=== PATIENT | male | born 2000 | race Two or more races ===

== ENCOUNTER 2021-01-03 15:45 | Emergency (ER) | payer MEDICAID ==
[~2021-01-03] VITALS: Ht 177.8 cm; Wt 62.8 kg
[2021-01-03] MEDS ORDERED: MORPHINE SULFATE 4 MG/ML, 1ML ONE (16:08)
[2021-01-03] MEDS ORDERED: ONDANSETRON 2MG/ML, 2ML ONE (16:08)
[2021-01-03] MEDS ORDERED: AMPICILLIN/SULBACTAM 3 GM in SODIUM CHLORIDE 0.9% 100 ML IV ONE (16:30)
[2021-01-03] MEDS ORDERED: MORPHINE SULFATE 4 MG/ML, 1ML IV PRN (16:30)
[2021-01-03] MEDS ORDERED: ONDANSETRON 2MG/ML, 2ML IVPush ONE (16:30)
[2021-01-03 16:39] LABS: HCT (SEDRATE) 26.5 % (39.2-51.8)
--- NOTE | 2021-01-03 16:40 | NUR ---
PT CAME IN [place] SWELLING AND PAIN IN LEFT RING FINGER. PT STATES "I MAY HAVE POPPED MY KNUCKLE TOO HARD ONE TIME BUT I CANT REMEMBER JAMMING IT OR TWISTING IT". PT ALSO HAD A NON HODGKINS LYMPHONA DX AND HAS BEEN ON CHEMO ON THE PAST BUT IS NOT CURRENTLY UNDEROING CHEMO TREATMENT. PT REPORTS THAT JAN 25 HE IS SLATED TO GO TO [facility] TO START A NEW CLINICAL CHEMO TRIAL. PT IS RESTING IN [facility]. CONNECTED TO MONITORING EQUIPMENT. BLOOD CULTURES DRAWN PRIOR TO ADM OF ABX.
[2021-01-03 16:41] LABS: MEAN CORPUSCULAR HEMOGLOBIN 22.9 pg (27.5-34.5); MEAN CORPUSCULAR HGB CONC 30.8 g/dL (33.2-36.2); MEAN PLATELET VOLUME 6.4 fL (7.4-10.4); PLATELET COUNT 675 x10^3/uL (130-400); RED CELL DISTRIBUTION WIDTH 18.9 % (9.4-14.8)
[2021-01-03 16:52] LABS: ALBUMIN 2.1 g/dL (3.4-5.0); CALCIUM 8.4 mg/dL (8.5-10.1); CHLORIDE 106 mmol/L (98-107)
[2021-01-03 17:00] LABS: ALANINE AMINOTRANSFERASE 34 U/L (12-78); ALKALINE PHOSPHATASE 421 U/L (45-117); ANION GAP 10 mmol/L (5-15); BILIRUBIN,TOTAL 0.4 mg/dL (0.2-1.0); CREATININE 0.75 mg/dL (0.7-1.3); TOTAL PROTEIN 7.5 g/dL (6.4-8.2)
[2021-01-03 17:06] VITALS: BP 124/68
[2021-01-03 17:40] LABS: MD YES
[2021-01-03 17:41] LABS: LYMPH#(MANUAL) 0.98 x10^3/uL (1-3.4); LYMPHS% (MANUAL) 8 % (22-44); MONOS#(MANUAL) 0.61 x10^3/uL (0.3-2.7); MONOS% (MANUAL) 5 % (2-9); SEG#(MANUAL) 10.61 x10^3/uL (1.8-6.8); SEGS% (MANUAL) 87 % (42-75)
[2021-01-03 17:42] LABS: ANISOCYTOSIS 2+
[2021-01-03 17:43] LABS: HYPOCHROMIA 2+; MICROCYTOSIS 2+; POLYCHROMASIA 1+
[2021-01-03 17:44] LABS: OVALOCYTES 1+; SPHEROCYTES 1+
[2021-01-03 17:45] LABS: <PLATELET ESTIMATE> INCREASED; SMALL PLATELETS 1+; TOXIC GRAN 1+
== END 2021-01-03 17:27 | disposition home or self-care (01) ==
LOC: ED 17:00
DX: C81.90 Hodgkin lymphoma, unspecified, unspecified site (principal); L03.012 Cellulitis of left finger; D64.9 Anemia, unspecified; M79.89 Other specified soft tissue disorders
CPT/HCPCS: 29130; 36415; 73130; 80053; 85025; 85651; 86140; 87040; 96365; 96375; 99284; J0295; J2270; J2405

== ENCOUNTER 2021-03-09 16:50 | Inpatient (IN) | payer MEDICARE, MEDICAID ==
[~2021-03-09] VITALS: Ht 177.8 cm; Wt 67.4 kg
[2021-03-09] VITALS (8 sets, daily range): BP systolic 104–130; BP diastolic 46–90
--- NOTE | 2021-03-09 17:05 | NUR ---
SEISMOLOGY TEACHER: PT REFUSED TO STAND FOR TRIAGE WEIGHT. PT REPOERTS HE IS IN TOO MUCH PAIN TO STAND.
--- NOTE | 2021-03-09 17:55 | NUR ---
PT TO ROOM 16 W/ C/O FEELING HOT AND HAVING GEN WEAKNESS. PT STATES HE WENT TO [facility] AND WAS TOLD HE HAD BACTEREMIA. PT STATES HE LEFT AMA BECAUSE [place] AND WANTED TO BE ADMITTED [place]. PT LEFT AMA YESTERDAY. TO ED TODAY. PT NOTED TO BE HOT, PALE, LETHARGIC IN ROOM. PORT ACCESSED. PT RESTING ON GURNEY. NADN. MONITORS APPLIED. VSS. STUDENT AT BEDSIDE FOR EVAL.
[2021-03-09] MEDS ORDERED: LEVO25TA4 PO (17:58)
[2021-03-09] MEDS ORDERED: [UNRECOGNIZED DRUG - OTHER] IV (17:58)
[2021-03-09] MEDS ORDERED: [UNRECOGNIZED DRUG - REMARK] IV (17:58)
[2021-03-09] MEDS ORDERED: ONDANSETRON 2MG/ML, 2ML IVPush ONE ×2 (18:00→19:30)
[2021-03-09] MEDS ORDERED: SODIUM CHLORIDE FLUSH 10ML SYR IVF ONE (18:00)
[2021-03-09] MEDS ORDERED: SODIUM CHLORIDE 0.9% 1,000ML IVBOLUS ONE ×2 (18:00→19:30)
[2021-03-09] MEDS ORDERED: ONDANSETRON 2MG/ML, 2ML ONE ×2 (18:01→19:53)
[2021-03-09] MEDS ORDERED: MORPHINE SULFATE 4 MG/ML, 1ML ONE (18:02)
[2021-03-09] MEDS: MORPHINE SULFATE 4 MG/ML, 1ML IVPush PRN (18:04)
[2021-03-09 18:21] LABS: MEAN CORPUSCULAR HGB CONC 30.6 g/dL (33.2-36.2); MEAN PLATELET VOLUME 7.4 fL (7.4-10.4); PLATELET COUNT 379 x10^3/uL (130-400); RED BLOOD COUNT 2.52 x10^6/uL (4.38-5.82); RED CELL DISTRIBUTION WIDTH 23.5 % (9.4-14.8)
[2021-03-09 18:28] LABS: ALANINE AMINOTRANSFERASE 15 U/L (12-78); ALBUMIN 1.8 g/dL (3.4-5.0); ANION GAP 6 mmol/L (5-15); CALCIUM 7.8 mg/dL (8.5-10.1); CHLORIDE 107 mmol/L (98-107); CREATININE 0.66 mg/dL (0.7-1.3)
[2021-03-09 18:30] LABS: ALKALINE PHOSPHATASE 193 U/L (45-117); BILIRUBIN,TOTAL 0.3 mg/dL (0.2-1.0); TOTAL PROTEIN 5.6 g/dL (6.4-8.2)
--- NOTE | 2021-03-09 19:04 | NUR ---
PT RESTING ON GURNEY. NADN. CAMERON.
--- NOTE | 2021-03-09 19:07 | NUR ---
DISCUSSED PT WBC AND LACTIC ACID W/ ERP DR. QUINN. AWAITING NEW ORDERS FOR IV ABX.
[2021-03-09 19:18] LABS: BAND#(MANUAL) 0.17 x10^3/uL; BANDS%(MANUAL) 1 % (0-7); LYMPH#(MANUAL) 1.57 x10^3/uL (1-3.4); LYMPHS% (MANUAL) 9 % (22-44); METAMYELOCYTES# (MANUAL) 0.17 x10^3/uL (0-0); METAMYELOCYTES% (MANUAL) 1 % (0-1); MONOS% (MANUAL) 4 % (2-9); SEG#(MANUAL) 14.79 x10^3/uL (1.8-6.8); SEGS% (MANUAL) 85 % (42-75)
[2021-03-09 19:19] LABS: ANISOCYTOSIS 1+; HYPOCHROMIA 1+
[2021-03-09 19:20] LABS: OVALOCYTES 1+; POLYCHROMASIA 1+; SPHEROCYTES 1+
[2021-03-09 19:21] LABS: <PLATELET ESTIMATE> ADEQUATE; <PLT MORPHOLOGY> NORMAL PLT MORPH; TEAR DROPS 1+; TOXIC GRAN 1+
[2021-03-09 19:22] LABS: MICROCYTOSIS 1+
[2021-03-09] MEDS ORDERED: VANCOMYCIN PER PHARMACY MC ONE (19:30)
[2021-03-09] MEDS ORDERED: HYDROmorphone 1 MG/ML, 1ML INJ ONE (19:53)
--- NOTE | 2021-03-09 19:59 | NUR ---
2ND PIV INITIATED AFTER PT EDUCATED ON IMPORTANCE TO BE ABLE TO RUN VANOMYCIN FOR INFECTION WELL BLOOD. PT VERBALIZES UNDERSTANDING. PORT UTILIZED FOR ABX AND PIV L AC UTILIZED FOR BLOOD TRANSFUSION. PT RESTING ON GURNEY. NADN. CAMERON.
[2021-03-09] MEDS ORDERED: CEFTRIAXONE PMX 1GM/50ML 50 ML IVPB ONE (20:00)
[2021-03-09] MEDS ORDERED: PLEASE ENTER MEASURED WEIGHT MC SCH (20:00)
[2021-03-09] MEDS ORDERED: HYDROmorphone 1 MG/ML, 1ML INJ IV ONE (20:00)
[2021-03-09] MEDS ORDERED: VANCOMYCIN 1,600 MG in SODIUM CHLORIDE 0.9% 250 ML IV ONE (20:00)
[2021-03-09] MEDS ORDERED: CEFTRIAXONE PMX 1GM/50ML 50 ML ONE (20:13)
[2021-03-09] MEDS ORDERED: ONDANSETRON ODT 4 MG PO PRN (20:30)
[2021-03-09] MEDS ORDERED: NS + 20MEQ KCL 1,000 ML IV SCH (20:30)
[2021-03-09] MEDS ORDERED: DIPHENHYDRAMINE 25 MG CAPSULE PO PRN (20:30)
[2021-03-09] MEDS ORDERED: POLYETHYLENE GLYCOL 17 GM PACKET PO PRN (20:30)
[2021-03-09] MEDS ORDERED: BISACODYL 10 MG SUPP PR PRN (20:30)
[2021-03-09] MEDS ORDERED: VANCOMYCIN PER PHARMACY MC PRN (20:30)
--- NOTE | 2021-03-09 20:35 | NUR ---
REPORT GIVEN TO JAIR ROMERO RN. ALL QUESTIONS ANSWERED. AWAITING PT TRANSPORT.
--- NOTE | 2021-03-09 20:41 | NUR ---
PT RESTING ON GURNEY. NADN. CAMERON.
[2021-03-09] MEDS ORDERED: PHARMACOKINETIC CONSULTATION MC ONE (21:00)
[2021-03-09] MEDS ORDERED: PHARMACOKINETIC MONITORING MC PRN (21:00)
[2021-03-09] MEDS: OXYcodone IR 5MG TABLET PO PRN ×2 (21:26→23:51)
[2021-03-09] MEDS: ACETAMINOPHEN 325 MG TABLET PO PRN (22:08)
[2021-03-09] MEDS: AMPICILLIN/SULBACTAM 3 GM in SODIUM CHLORIDE 0.9% 100 ML IV SCH (22:33)
[2021-03-10 00:25] VITALS: BP 111/60
[2021-03-10 00:50] VITALS: BP 111/60
[2021-03-10] MEDS ORDERED: HYDROCORTISONE CRM 2.5%, 20GM TP PRN (01:00)
[2021-03-10] MEDS: morphine SULFATE 10 MG/ML, 1ML IVPush PRN ×5 (01:09→23:34)
[2021-03-10 02:51] VITALS: BP 109/55
[2021-03-10] MEDS ORDERED: VANCOMYCIN 1,200 MG in SODIUM CHLORIDE 0.9% 250 ML IV SCH (04:00)
[2021-03-10] MEDS ORDERED: DIPHENHYDRAMINE 25 MG CAPSULE PO PRN (04:08)
[2021-03-10] MEDS: AMPICILLIN/SULBACTAM 3 GM in SODIUM CHLORIDE 0.9% 100 ML IV SCH (04:52)
[2021-03-10 05:55] LABS: BASOPHILS % (AUTO) 0 % (0-1); EOSINOPHILS % (AUTO) 0 % (1-7); LYMPHOCYTES % (AUTO) 5 % (22-44); MEAN CORPUSCULAR HGB CONC 31.4 g/dL (33.2-36.2); MEAN PLATELET VOLUME 6.9 fL (7.4-10.4); MONOCYTES % (AUTO) 4 % (2-9); NEUTROPHILS % (AUTO) 90 % (42-75); PLATELET COUNT 348 x10^3/uL (130-400); RED BLOOD COUNT 2.88 x10^6/uL (4.38-5.82)
[2021-03-10 05:59] LABS: ANION GAP 6 mmol/L (5-15); CALCIUM 7.4 mg/dL (8.5-10.1); CHLORIDE 111 mmol/L (98-107); CREATININE 0.59 mg/dL (0.7-1.3)
[2021-03-10] MEDS: OXYcodone IR 5MG TABLET PO PRN ×4 (06:23→21:47)
[2021-03-10] MEDS: SODIUM CHLORIDE 0.9% 1,000 ML IV SCH ×4 (07:00→21:14)
[2021-03-10] MEDS: VANCOMYCIN 1,200 MG in SODIUM CHLORIDE 0.9% 250 ML IV SCH ×3 (08:08→23:34)
[2021-03-10] MEDS: metroNIDAZOLE 500 MG TABLET PO SCH ×3 (08:10→20:34)
[2021-03-10] MEDS: SENNA/DOCUSATE TABLET PO SCH (08:10)
[2021-03-10] MEDS: MORPHINE SULFATE 4 MG/ML, 1ML IVPush PRN (08:11)
[2021-03-10 08:42] VITALS: BP 122/80
[2021-03-10] MEDS: CEFEPIME 2 GM in DEXTROSE 5% 100 ML IV SCH ×3 (09:09→22:52)
[2021-03-10 13:33] VITALS: BP 139/85
[2021-03-10 19:43] VITALS: BP 127/65
[2021-03-10] MEDS: ACETAMINOPHEN 325 MG TABLET PO PRN (20:34)
[2021-03-11 00:30] LABS: MEAN CORPUSCULAR HEMOGLOBIN 27.2 pg (27.5-34.5); MEAN CORPUSCULAR HGB CONC 31.7 g/dL (33.2-36.2); MEAN PLATELET VOLUME 6.9 fL (7.4-10.4); PLATELET COUNT 339 x10^3/uL (130-400); RED BLOOD COUNT 2.72 x10^6/uL (4.38-5.82); RED CELL DISTRIBUTION WIDTH 20.7 % (9.4-14.8)
[2021-03-11 00:37] LABS: ANION GAP 6 mmol/L (5-15); CALCIUM 6.3 mg/dL (8.5-10.1); CHLORIDE 115 mmol/L (98-107); CREATININE 0.45 mg/dL (0.7-1.3)
[2021-03-11 01:02] LABS: ANISOCYTOSIS 1+; BAND#(MANUAL) 1.47 x10^3/uL; BANDS%(MANUAL) 13 % (0-7); HYPOCHROMIA 1+; LYMPH#(MANUAL) 0.45 x10^3/uL (1-3.4); LYMPHS% (MANUAL) 4 % (22-44); METAMYELOCYTES# (MANUAL) 0.23 x10^3/uL (0-0); METAMYELOCYTES% (MANUAL) 2 % (0-1); MICROCYTOSIS 1+; MONOS#(MANUAL) 0.23 x10^3/uL (0.3-2.7); MONOS% (MANUAL) 2 % (2-9); MYELOCYTES# (MANUAL) 0.11 x10^3/uL (0-0); MYELOCYTES% (MANUAL) 1 % (0-0); OVALOCYTES 1+; POLYCHROMASIA 1+; SEG#(MANUAL) 8.81 x10^3/uL (1.8-6.8); SEGS% (MANUAL) 78 % (42-75); SPHEROCYTES 1+
[2021-03-11 01:03] LABS: <PLATELET ESTIMATE> ADEQUATE
[2021-03-11 01:04] LABS: SMALL PLATELETS 1+; TOXIC GRAN 2+
[2021-03-11 01:28] VITALS: BP 148/82
[2021-03-11] MEDS: OXYcodone IR 5MG TABLET PO PRN ×6 (02:08→22:20)
[2021-03-11] MEDS: morphine SULFATE 10 MG/ML, 1ML IVPush PRN ×6 (04:16→22:21)
[2021-03-11] MEDS: CEFEPIME 2 GM in DEXTROSE 5% 100 ML IV SCH ×2 (06:01→15:37)
[2021-03-11] MEDS ORDERED: POTASSIUM CHLORIDE 20 MEQ TAB.ER.PRT PO ONE (07:00)
[2021-03-11] MEDS: SENNA/DOCUSATE TABLET PO SCH (07:43)
[2021-03-11 08:15] VITALS: BP 155/83
[2021-03-11 13:08] VITALS: BP 133/83
[2021-03-11] MEDS: SODIUM CHLORIDE 0.9% 1,000 ML IV SCH ×2 (13:49→23:16)
[2021-03-11 20:07] VITALS: BP 123/77
[2021-03-12 02:28] VITALS: BP 148/78
[2021-03-12] MEDS: OXYcodone IR 5MG TABLET PO PRN ×2 (02:29→05:47)
[2021-03-12] MEDS: morphine SULFATE 10 MG/ML, 1ML IVPush PRN ×2 (02:29→05:47)
[2021-03-12 05:40] LABS: MEAN CORPUSCULAR HEMOGLOBIN 26.6 pg (27.5-34.5); MEAN CORPUSCULAR HGB CONC 31.2 g/dL (33.2-36.2); MEAN PLATELET VOLUME 6.7 fL (7.4-10.4); PLATELET COUNT 486 x10^3/uL (130-400); RED BLOOD COUNT 3.34 x10^6/uL (4.38-5.82); RED CELL DISTRIBUTION WIDTH 20.1 % (9.4-14.8)
[2021-03-12 05:50] LABS: ANION GAP 8 mmol/L (5-15); CALCIUM 7.8 mg/dL (8.5-10.1); CHLORIDE 107 mmol/L (98-107)
[2021-03-12 05:54] LABS: CREATINE KINASE, TOTAL 40 U/L (39-308); CREATININE 0.52 mg/dL (0.7-1.3)
[2021-03-12 06:15] LABS: ANISOCYTOSIS 1+; BAND#(MANUAL) 0.46 x10^3/uL; BANDS%(MANUAL) 4 % (0-7); HYPOCHROMIA 1+; LYMPH#(MANUAL) 1.37 x10^3/uL (1-3.4); LYMPHS% (MANUAL) 12 % (22-44); METAMYELOCYTES# (MANUAL) 0.11 x10^3/uL (0-0); METAMYELOCYTES% (MANUAL) 1 % (0-1); MONOS#(MANUAL) 0.23 x10^3/uL (0.3-2.7); MONOS% (MANUAL) 2 % (2-9); OVALOCYTES 1+; POLYCHROMASIA 1+; SEG#(MANUAL) 9.23 x10^3/uL (1.8-6.8); SEGS% (MANUAL) 81 % (42-75)
[2021-03-12 06:16] LABS: TEAR DROPS 1+
[2021-03-12 06:17] LABS: TOXIC GRAN 1+
[2021-03-12 06:18] LABS: <PLATELET ESTIMATE> INCREASED; <PLT MORPHOLOGY> NORMAL PLT MORPH
[2021-03-12] MEDS ORDERED: DAPTOMYCIN 400 MG in SODIUM CHLORIDE 0.9% 100 ML IVPB SCH (08:00)
[2021-03-12] MEDS ORDERED: POTASSIUM CHLORIDE 20 MEQ PACKET PO ONE (08:00)
[2021-03-12] MEDS: SENNA/DOCUSATE TABLET PO SCH (08:38)
[2021-03-12 08:50] VITALS: BP 110/64
[2021-03-12] MEDS ORDERED: LINE600T12 PO ×2 (14:01)
[2021-03-12 14:02] VITALS: BP 119/65
[2021-03-12] MEDS ORDERED: LINEZOLID 600 MG TABLET PO SCH (14:30)
[2021-03-27] MEDS ORDERED: LEVO100T PO (15:21)
[2021-03-27] MEDS ORDERED: CLON1TAB11 PO (15:21)
[2021-03-29] MEDS ORDERED: HYDR50TA99 PO (08:19)
[2021-03-29] MEDS ORDERED: FENT1PAT76 TD ×2 (08:19→08:23)
[2021-03-29] MEDS ORDERED: OXYC5TAB98 PO ×2 (08:19→08:23)
[2021-03-29] MEDS ORDERED: AMOX1TAB12 PO (08:19)
[2021-03-29] MEDS ORDERED: PRED20TA PO (08:19)
[2021-03-29] MEDS ORDERED: LEVO100T PO (08:35)
[2021-03-29] MEDS ORDERED: CLON1TAB11 PO ×2 (08:35→08:38)
[2021-03-30] MEDS ORDERED: METO25TA35 PO (12:19)
== END 2021-03-12 15:20 | disposition home or self-care (01) | DRG 720 ==
LOC: ED 20:47 → EDIP 21:03 → 4NW 21:22 → 5SO 03-10 00:23
PROVIDERS: ADMIT Internal Medicine; ATTEND Internal Medicine
PROC: 30233N1 Transfusion of Nonautologous Red Blood Cells into Peripheral Vein, Percutaneous Approach (ICD-10-PCS; principal; 2021-03-09)
DX: A41.02 Sepsis due to Methicillin resistant Staphylococcus aureus (principal); J96.01 Acute respiratory failure with hypoxia; E43 Unspecified severe protein-calorie malnutrition; C81.90 Hodgkin lymphoma, unspecified, unspecified site; L03.116 Cellulitis of left lower limb; L03.012 Cellulitis of left finger; E87.6 Hypokalemia; R65.20 Severe sepsis without septic shock; D63.8 Anemia in other chronic diseases classified elsewhere; F12.90 Cannabis use, unspecified, uncomplicated; Z68.20 Body mass index [BMI] 20.0-20.9, adult; Z83.3 Family history of diabetes mellitus; Z92.21 Personal history of antineoplastic chemotherapy
CPT/HCPCS: 36415; 36430; 71045; 80048; 80053; 80202; 82550; 83605; 83735; 84100; 84443; 85025; 86850; 86900; 86923; 87040; 87070; 87077; 87186; 87205; 93005; 93306; G0378; J0295; J0696; J0878; J1170; J2405; J3370; J3480; J2270; J7030; J7050; P9016; Q0163